=== PATIENT | male | born 1990 | race Two or more races ===

== ENCOUNTER 2021-10-05 12:42 | Emergency (ER) | payer SELFPAY ==
[2021-10-05] MEDS ORDERED: Diphtheria,Pertussis(Acell),Tetanus Vaccine 0.5 ML Syringe IM ONE (13:05)
[2021-10-05] MEDS ORDERED: Lidocaine 2% 5 ML SDV INJECT ONE (13:25)
[2021-10-05] MEDS ORDERED: Lidocaine 1% 5 ML VIAL INJECT ONE (13:34)
[2021-10-05] MEDS ORDERED: ceFAZolin 1 GM Vial IM STA (14:51)
[2021-10-05] MEDS ORDERED: Acetaminophen/HYDROcodone 325-5 MG Tab PO ONE (14:51)
[2021-10-05] MEDS ORDERED: Ibuprofen 600 MG Tab PO ONE (14:51)
== END 2021-10-05 15:33 | disposition home or self-care (01) ==
LOC: MW.ED 12:42
DX: S61.312A Laceration without foreign body of right middle finger with damage to nail, initial encounter (principal); Z23 Encounter for immunization; Z88.6 Allergy status to analgesic agent; W23.1XXA Caught, crushed, jammed, or pinched between stationary objects, initial encounter; Y99.0 Civilian activity done for income or pay
CPT/HCPCS: 12004; 73130; 90471; 90715; 96372; 99283; A9270; J0690